=== PATIENT | female | born 1970 | race Caucasian/White ===

== ENCOUNTER 2022-04-06 06:31 | Emergency (ER) | payer BC ==
[2022-04-06] MEDS: Aspirin 81 MG Tab.Chew PO ONE (06:51)
[2022-04-06] MEDS: Nitroglycerin 0.4 MG Tab.SL SL ONE (06:55)
[2022-04-06 07:30] LABS: ANION GAP 10.7 mmol/L (5-15)
[2022-04-06] MEDS: LORazepam 0.5 MG Tab PO ONE (07:37)
[2022-04-06] MEDS: Labetalol 100 MG/20 ML MDV IVPUSH ONE (08:17)
[2022-04-06] MEDS: Sodium Chloride 0.9% 10 ML Syringe FLUSH PRN (08:20)
[2022-04-06] MEDS: Metoprolol Tartrate 25 MG Tab PO ONE (08:48)
[2022-04-06] MEDS: Metoprolol Tartrate 50 MG Tab PO ONE (08:51)
== END 2022-04-06 09:01 | disposition home or self-care (01) ==
LOC: KA.ED 06:31
DX: F41.9 Anxiety disorder, unspecified (principal); R03.0 Elevated blood-pressure reading, without diagnosis of hypertension
CPT/HCPCS: 36415; 80053; 84484; 85025; 93005; 96374; 99284; 99284-25; A9270-GY; J3490